=== PATIENT | female | born 1955 | race Caucasian/White ===

== ENCOUNTER → 2018-02-21 | Day surgery (SDC) | payer BC, OTHER ==
[~2018-02-21] VITALS: Ht 151.1 cm; Wt 79.5 kg
[~2018-02-21] MED LIST: CHLORHEXIDINE GLUCONATE 2 % 1 PACK (2 CLOTHS) TOPICAL PRN; CITA40TA4 PO; DOXY100T PO; GABA100C4 PO; KETOROLAC TROMETHAMINE 30 MG/ML (IVP) VIAL ONE; LACTATED RINGER'S 1000 ML IV PRN; LORA0.5T PO; METO50TA PO; METOPROLOL TARTRATE 25 MG TAB PO PRN; MIDAZOLAM HCL 2 MG/2 ML VIAL ONE; NO ITAB PO; POVIDONE IODINE 10% SOLN 118 ML BOTTLE TOPICAL PRN; POVIDONE IODINE 5% (ANTISEPSIS KIT) 4 APPLICATIONS EACH NARE PRN; ROPI2TAB PO; SILVER SULFADIAZINE 1% CR 50 GM JAR ONE; SM CCHW2 PO; SODIUM CHLORID 0.9% 500 ML IV PRN; TACR1 PO; TYLE325T PO; [UNRECOGNIZED DRUG - OTHER] PO; [UNRECOGNIZED DRUG - REMARK] ONE
[2018-02-21 07:57] LABS: HEMATOCRIT 37.1 % (35.0-46.0); HEMOGLOBIN 12.3 GM/DL (11.6-15.3); MEAN CORPUSCULAR HEMOGLOBIN 27.6 PG (27.0-34.0); MEAN CORPUSCULAR HGB CONC 33.3 % (32.0-36.0); MEAN PLATELET VOLUME 7.6 FL (7.0-11.0); PLATELET COUNT 194 TH/MM3 (150-450); RED BLOOD COUNT 4.47 MIL/MM3 (4.00-5.30); RED CELL DISTRIBUTION WIDTH 14.6 % (11.6-17.2); WHITE BLOOD COUNT 7.6 TH/MM3 (4.0-11.0)
[2018-02-21 10:17] VITALS: PULSE 81
[2018-02-21 11:00] VITALS: PULSE 71
[2018-02-21 11:25] VITALS: BP 160/84; PULSE 75; RESP 16; TEMP 97.9; O2SAT 98
--- NOTE | 2018-02-21 13:06 | EKG ---
Date Performed: 02/21/2018 Time Performed: 08:50:57 PTAGE: 62 years EKG: Sinus rhythm NORMAL ECG PREVIOUS TRACING : 08/25/2014 17.03 DOCTOR: Joshua Hayes Interpretating Date/Time 02/21/2018 13:03:24
--- NOTE | 2018-02-28 14:54 | MP ---
cc: Susan Lynch MD DATE OF OPERATION: 02/21/2018 DATE OF SURGERY: 02/21/2018. PREOPERATIVE DIAGNOSIS: Vaginal intraepithelial neoplasia grade 2. POSTOPERATIVE DIAGNOSIS: Vaginal intraepithelial neoplasia, grade 2. PROCEDURE PERFORMED: CO2 laser vaporization of vaginal dysplasia using colposcopy. ANESTHESIA: General by LMASena CRNA. SURGEON: Susan Lynch MD ACCOUNTS COLLECTOR: RESIDENT SURGEON: None. INDICATIONS: This patient is on immunosuppressive drugs as a liver transplant recipient. She had a hysterectomy for recurring cervical dysplasia. She now has biopsy proven vaginal intraepithelial neoplasia at the vaginal cuff. She presents for excision and/or laser vaporization. PROCEDURE: The patient was placed supine on the OR table and given general anesthesia by mask. She was then positioned in high stirrups and the vulva was surrounded by wet towels as a precaution for laser. The colposcope was brought into the field and using acetic acid wash the entire vagina and vulva were viewed. The site of the previous biopsy was easily seen and not yet healed. However, the only acetowhite epithelium was along the horizontal line of the vaginal cuff. There was also a 1 cm deep cranny on the right side of the vaginal cuff. The CO2 laser was utilized with a wide focus. The 1 cm deep cranny was held open with a blunt instrument and vaporized with a wide diffuse beam until the mucosa was obliterated. This was also done along the vaginal cuff. Since no further acetowhite epithelium was seen, Silvadene cream was applied to the lasered mucosa and the patient was returned to supine position. After waking she transferred to the recovery room breathing on her own. She tolerated the procedure well. Sponge, needle and instrument counts were correct. It was noted that the patient had a blood pressure of 150s/90s even under anesthesia. Susan Lynch MD PMF/SB , 02:29 PM , 02:53 PM
== END | disposition home or self-care (01) ==
LOC: PHSDC 06:29
PROVIDERS: ATTEND Obstetrics & Gynecology
DX: N89.1 Moderate vaginal dysplasia (principal); I10 Essential (primary) hypertension
CPT/HCPCS: 00940; 36415; 57065; 85027; 93005; J1885; J2250; J3010; J7120